=== PATIENT | male | born 1985 | race Caucasian/White ===

== ENCOUNTER → 2020-08-28 10:46 | Outpatient (BNVA) | payer OTHER, SELFPAY | PROVIDERS: Visit Provider Internal Medicine | DX: S16.1XXD Strain of muscle, fascia and tendon at neck level, subsequent encounter (principal); X58.XXXD Exposure to other specified factors, subsequent encounter | CPT/HCPCS: 72050; 99203 ==

== ENCOUNTER → 2020-09-08 10:15 | Outpatient (BNVA) | payer OTHER, SELFPAY | PROVIDERS: Visit Provider Internal Medicine | DX: S16.1XXD Strain of muscle, fascia and tendon at neck level, subsequent encounter (principal); X58.XXXD Exposure to other specified factors, subsequent encounter; M50.323 Other cervical disc degeneration at C6-C7 level | CPT/HCPCS: 99213 ==

== ENCOUNTER 2020-09-23 13:00 | Outpatient (RCR) | payer OTHER, SELFPAY ==
--- NOTE | 2020-09-14 13:41 | MHC.PT.EP ---
[facility] [place] [facility] [place] [facility] [place] [facility] [address] [phone] F: [phone] F: [phone] F: [phone] F: [phone] Physical Therapy Plan of Care Date of Evaluation: 09/02/20 Date of Surgery: NA Diagnosis: CERVICAL STRAIN, MILD DDD Assessment: Pt IS 35 YO RHD M REFERRED TO PT FROM WITH CERVICAL STRAIN (MILD DDD ON CERV XRAY). Pt REPORTS 08/07/20 WAS TAKING HEAVY BOX DOWN FROM OVERHEAD AND FELT PAIN IN NECK. REPORTS OVERALL BETTER SINCE THIS INCIDENT BUT STILL HAS TROUBLE SLEEPING. PRESENTS WITH LIMITED CERV EXT AND LAT FLEX, POOR POSTURE. Pt WORKS [employer] AT [employer] AND HAS NOT HAD TO TAKE TIME OOW. SHOULDE BENEFIT FROM PT TO HELP STRETCH/STRENGTHEN NECK/UPPER BODY TO HELP IMPROVE POSTURE, INCREASE CERV ROM AND HELP DECREASE PAIN Frequency and Duration: The patient will be seen 2X/WK X 4 WEEKS Short Term Goals: 1. INCREASED POSTURE AWARENESS AND AWARENESS NECK CARE 2. IMPROVED SLEEP [employer] Goals: 1. INCREASED CERV ROM EXT 5 DEGREES AND SB R 10 DEGREES 2. DECREASED OVERALL PAIN AT LEAST 50% WITH ADLS. Treatment Plan: Modalities to reduce pain, spasms and effusion. Manual therapy to restore motion and function. Therapeutic exercise to improve strength and flexibility. Neuromuscular re-education for posture and balance. Therapeutic activities to return to functional activities of daily living. Electronically signed by: CHRISTA RAMIREZ PT Please sign and return to therapist. Thank you for your referral.
--- NOTE | 2020-09-23 14:14 | MHC.PT.DC ---
[facility] [place] Office [place] Office [place] [facility] [address]ose Caputo [address] [phone] F: [phone] F: [phone] F: [phone] F: [phone] Physical Therapy Discharge Report Diagnosis: CERVICAL STRAIN, MILD DDD Date of Surgery: NA Date of Evaluation: 09/02/20 Date of Discharge: Treatments to Date: 6 Cancellations to Date: 0 No Shows to Date: 0 Discharge Status: Discharge Summary: HAS MET PT GOALS Electronically signed by: CHRISTA RAMIREZ PT Please sign and return to therapist. Thank you for your referral.
--- NOTE | 2020-09-23 14:15 | MHC.PT.DC ---
[facility] [place] Office [place] Office [place] Office [address]ose Caputo [address] [phone] F: [phone] F: [phone] F: [phone] F: [phone] Physical Therapy Discharge Report Diagnosis: CERVICAL STRAIN, MILD DDD Date of Surgery: NA Date of Evaluation: 09/02/20 Date of Discharge: Treatments to Date: 6 Cancellations to Date: 0 No Shows to Date: 0 Discharge Status: Discharge Summary: HAS MET PT GOALS Electronically signed by: CHRISTA RAMIREZ PT Please sign and return to therapist. Thank you for your referral.
--- NOTE | 2020-09-23 14:34 | MHC.PT.DC ---
[facility] [place] Office [place] Office [place] Office [address]ose Caputo [address] [phone] F: [phone] F: [phone] F: [phone] F: [phone] Physical Therapy Discharge Report Diagnosis: CERVICAL STRAIN, MILD DDD Date of Surgery: NA Date of Evaluation: 09/02/20 Date of Discharge: Treatments to Date: 6 Cancellations to Date: 0 No Shows to Date: 0 Discharge Status: Achieved Goals Improved Function Independent with HEP Discharge Summary: HAS MET PT GOALS Electronically signed by: CHRISTA RAMIREZ PT Please sign and return to therapist. Thank you for your referral.
== END 2020-10-21 15:15 | disposition other institution (70) ==
LOC: HO.PTWFD 13:00
PROVIDERS: Visit Provider Internal Medicine
DX: S16.1XXD Strain of muscle, fascia and tendon at neck level, subsequent encounter (principal)
CPT/HCPCS: 97012; 97110; 97140; 97161; 97535